=== PATIENT | male | born 1995 | race Caucasian/White ===

== ENCOUNTER 2018-02-12 18:59 | Emergency (ER) | payer BC ==
[2018-02-12] MEDS ORDERED: DEXAMETHASONE SOD PHOS INJ 10 MG/1 ML VIAL IV ONE (19:57)
[2018-02-12] MEDS ORDERED: ONDANSETRON 4 MG TAB.RAPDIS PO ONE (19:57)
[2018-02-12] MEDS ORDERED: NORMAL SALINE 1000 ML 1,000 ML IV ONE (19:57)
--- NOTE | 2018-02-12 19:59 | ER Document Report ---
ED Medical Screen (RME) - General Chief Complaint: Nausea/Vomiting/Diarrhea Stated Complaint: VOMITING Time Seen by Provider: 02/12/18 19:56 TRAVEL OUTSIDE OF THE [place] IN LAST 30 DAYS: No - HPI Notes: 02/12/18 19:57 Patient states nausea vomiting for approximately 1 week along with diarrhea also has a history of hypertension since he was acute however the only medication. Patient states no fevers no chills states multiple sick contacts however no one with his symptoms. Patient states feels like his throat is closing in. Patient otherwise resting comfortably talking complete sentences. - Related Data Allergies/Adverse Reactions: No Known Allergies Allergy (Verified 02/12/18 19:01) Review of Systems - Review of Systems Constitutional: Other - Nausea vomiting diarrhea Physical Exam - Vital signs Vitals: Temp Pulse Resp BP Pulse Ox 98.3 F 113 H 20 203/75 H 95 02/12/18 19:31 02/12/18 19:31 02/12/18 19:31 02/12/18 19:31 02/12/18 19:31 Interpretation: Normal - General General appearance: Appears well, Alert - HEENT Head: Normocephalic, Atraumatic Eyes: Normal Pupils: PERRL Notes: Bilateral tonsillar hypertrophy left greater than right with a possible tonsillolith in the right no uvula edema - Respiratory Respiratory status: No respiratory distress Chest status: Nontender Breath sounds: Normal Chest palpation: Normal - Cardiovascular Rhythm: Regular Heart sounds: Normal auscultation Murmur: No - Abdominal Inspection: Normal, Morbidly Obese Bowel sounds: Normal Tenderness: Nontender Organomegaly: No organomegaly - Back Back: Normal, Nontender - Extremities General upper extremity: Normal inspection, Nontender, Normal color, Normal ROM , Normal temperature General lower extremity: Normal inspection, Nontender, Normal color, Normal ROM , Normal temperature, Normal weight bearing. No: Isai's sign - Neurological Neuro grossly intact: Yes Cognition: Normal Orientation: AAOx4 [place] Coma Scale Eye Opening: Spontaneous [place] Coma Scale Verbal: Oriented Giorgio Coma Scale Motor: Obeys Commands [place] Coma Scale Total: 15 Speech: Normal Motor strength normal: LUE, RUE, LLE, RLE Sensory: Normal - Psychological Associated symptoms: Normal affect, Normal mood - Skin Skin Temperature: Warm Skin Moisture: Dry Skin Color: Normal Course - Vital Signs Vital signs: Temp Pulse Resp BP Pulse Ox 98.3 F 113 H 20 203/75 H 95 02/12/18 19:31 02/12/18 19:31 02/12/18 19:31 02/12/18 19:31 02/12/18 19:31
[2018-02-12] MEDS ORDERED: KETOROLAC TROMETHAMINE INJ/PF 30 MG/1 ML SDV IV ONE (20:16)
[2018-02-12] MEDS ORDERED: DEXAMETHASONE SOD PHOS INJ 10 MG/1 ML VIAL ONE (20:18)
[2018-02-12] MEDS ORDERED: ONDANSETRON 4 MG TAB.RAPDIS ONE (20:18)
--- NOTE | 2018-02-12 20:18 | ER Document Report ---
ED General - General Chief Complaint: Nausea/Vomiting/Diarrhea Stated Complaint: VOMITING Time Seen by Provider: 02/12/18 19:56 Notes: Patient is a 23-year-old male comes emergency department for chief complaint of 5 days of sick symptoms that started with throat pain, he states this is worsened, he vomited twice today, he also complains of loose stools and feeling feverish at home. States he feels like his throat is closing, he has had frequent strep throat infections in the past, he states this is worse than usual. Has known tonsillar hypertrophy. Denies any daily medications or medical problems otherwise. TRAVEL OUTSIDE OF THE [place] IN LAST 30 DAYS: No - Related Data Allergies/Adverse Reactions: No Known Allergies Allergy (Verified 02/12/18 19:01) Past Medical History - General Information source: Patient - Social History Smoking Status: Never Smoker Frequency of alcohol use: None Drug Abuse: None Lives with: Family Family History: Reviewed & Not Pertinent - Medical History Medical History: Negative Surgical Hx: Negative - Immunizations Immunizations up to date: Yes Review of Systems - Review of Systems Constitutional: See HPI EENT: See HPI Cardiovascular: No symptoms reported Respiratory: No symptoms reported Gastrointestinal: See HPI Genitourinary: No symptoms reported Male Genitourinary: No symptoms reported Musculoskeletal: No symptoms reported Skin: No symptoms reported Hematologic/Lymphatic: No symptoms reported Neurological/Psychological: No symptoms reported Physical Exam - Vital signs Vitals: Temp Pulse Resp BP Pulse Ox 98.3 F 113 H 20 203/75 H 95 02/12/18 19:31 02/12/18 19:31 02/12/18 19:31 02/12/18 19:31 02/12/18 19:31 - Notes Notes: GENERAL: Alert, interacts well. No acute distress. HEAD: Normocephalic, atraumatic. EYES: Pupils equal, round, and reactive to light. Extraocular movements intact. ENT: Oral mucosa moist, tongue midline. Very large tonsils with possible tonsillitis on the right, questionable peritonsillar abscess on the left, no uvular edema, clear airway. Anterior cervical adenopathy noted, no evidence of Tarun's angina. NECK: Full range of motion. Supple. Trachea midline. LUNGS: Clear to auscultation bilaterally, no wheezes, rales, or rhonchi. No respiratory distress. HEART: Regular rate and rhythm. No murmur ABDOMEN: Soft, non-tender. Non-distended. Bowel sounds present in all 4 quadrants. EXTREMITIES: Moves all 4 extremities spontaneously. No edema, normal radial and dorsalis pedis pulses bilaterally. No cyanosis. BACK: no cervical, thoracic, lumbar midline tenderness. No saddle anesthesia, normal distal neurovascular exam. NEUROLOGICAL: Alert and oriented x3. Normal speech. [cranial nerves II through XII grossly intact]. PSYCH: Normal affect, normal mood. SKIN: Warm, dry, normal turgor. No rashes or lesions noted. Course - Re-evaluation Re-evalutation: Positive strep, patient is very enlarged tonsils on examination with lymphadenopathy, questionable for peritonsillar abscess. Soft tissue of the neck was performed, shows no abscess, shows very large tonsils, adenopathy. Also shows questionable pneumonia. Patient is very well-appearing on reevaluation, he states he feels much better, no concern of airway compromise, no drooling, swallows easily, takes oral medications without any difficulty. Placing on amoxicillin and azithromycin. Discussed ENT follow-up, expectations , return precautions in detail. Patient states understanding and agreement with plan. - Vital Signs Vital signs: Temp Pulse Resp BP Pulse Ox 98.4 F 98 17 151/87 H 94 02/12/18 23:01 02/12/18 23:01 02/12/18 23:01 02/12/18 23:01 02/12/18 23:01 - Laboratory Result Diagrams: 02/12/18 20:11 02/12/18 20:11 Laboratory results interpreted by me: 02/12/18 02/12/18 02/12/18 20:11 20:11 20:11 WBC 14.8 H Seg Neutrophils % 81.3 H Lymphocytes % 9.2 L Absolute Neutrophils 12.1 H APTT 36.3 H Chloride 97 L Carbon Dioxide 31 H Glucose 127 H Discharge - Discharge Clinical Impression: Strep pharyngitis, Lymphadenopathy Pneumonia Qualifiers: Pneumonia type: due to unspecified organism Laterality: unspecified laterality Lung location: upper lobe of lung Qualified Code(s): J18.1 - Lobar pneumonia, unspecified organism Condition: Stable Disposition: HOME, SELF-CARE Additional Instructions: Your evaluation shows strep throat, pneumonia, and swollen lymph nodes. He also have occlusion of the nasopharyngeal passage as discussed. Take both antibiotics as prescribed to completion. You are contagious until you stop running fevers. Take Tylenol or ibuprofen for fevers. I recommend ear nose and throat follow-up because of very large tonsils and frequent infections. See referral, call referral for follow-up. Return if you worsen including swelling under the chin, swelling of the neck, increased swelling of the throat with difficulty swallowing, spiking fevers, difficulty breathing, or any other concerning symptoms. [facility] Address: [address] [place] [address] , [place] [address] Prescriptions: Amoxicillin Trihydrate [Amoxil 875 mg Tablet] 1 tab PO BID #20 tablet Azithromycin [Zithromax 250 mg Tablet] 250 mg PO ASDIR PRN #4 tablet PRN Reason: Forms: Return to Work Referrals: BRENDEN DINH, [ASSOCIATE] - Follow up as needed
[2018-02-12 20:27] LABS: ABSOLUTE BASOPHILS # (AUTO) 0.1 10^3/uL (0.0-0.2); ABSOLUTE EOSINOPHILS # (AUTO) 0.3 10^3/uL (0.0-0.6); ABSOLUTE LYMPHOCYTES (AUTO) 1.4 10^3/uL (0.5-4.7); ABSOLUTE NEUT (AUTO) 12.1 10^3/uL (1.7-8.2); BASOPHILS % (AUTO) 0.4 % (0-2); EOSINOPHILS % (AUTO) 2.1 % (0-6); HEMATOCRIT 44.8 % (37.9-51.0); HEMOGLOBIN 15.1 g/dL (13.5-17.0); LYMPHOCYTES % (AUTO) 9.2 % (13-45); MEAN CORPUSCULAR HEMOGLOBIN 28.1 pg (27.0-33.4); MEAN CORPUSCULAR HGB CONC 33.6 g/dL (32.0-36.0); MEAN CORPUSCULAR VOLUME 84 fl (80-97); PLATELET COUNT 277 10^3/uL (150-450); RED BLOOD COUNT 5.35 10^6/uL (4.35-5.55); RED CELL DISTRIBUTION WIDTH 13.9 % (11.5-14.0); SEGMENTED NEUTROPHILS % (AUTO) 81.3 % (42-78); TOTAL CELLS COUNTED % (AUTO) 100 %; WHITE BLOOD COUNT 14.8 10^3/uL (4.0-10.5)
[2018-02-12 20:36] LABS: INTERNATIONAL RATION (INR) 1.03
[2018-02-12 20:37] LABS: PARTIAL THROMBOPLASTIN TIME 36.3 SEC (23.5-35.8)
[2018-02-12 20:54] LABS: ALANINE AMINOTRANSFERASE 30 U/L (21-72); ALBUMIN 4.1 g/dL (3.5-5.0); ALKALINE PHOSPHATASE 50 U/L (38-126); ANION GAP 14 (5-19); ASPARTATE AMINO TRANSFERASE 35 U/L (17-59); BILIRUBIN,DIRECT 0.4 mg/dL (0.0-0.4); BILIRUBIN,TOTAL 0.5 mg/dL (0.2-1.3); BLOOD UREA NITROGEN 8 mg/dL (7-20); CARBON DIOXIDE 31 mmol/L (22-30); CHLORIDE 97 mmol/L (98-107); GLUCOSE 127 mg/dL (75-110); SODIUM 141.7 mmol/L (137-145); TOTAL PROTEIN 7.7 g/dL (6.3-8.2)
--- NOTE | 2018-02-12 21:56 | RADIOLOGY REPORT (SQ) ---
EXAM DESCRIPTION: CT SOFT TISSUE NECK WITH COMPLETED DATE/TIME: 02/12/2018 9:11 pm REASON FOR STUDY: throat pain/swelling, ? abscess COMPARISON: None. TECHNIQUE: Post IV contrasted scanning from skull base through lung apices with review of bone, soft tissue and lung windows. Reconstructed coronal and sagittal MPR images reviewed. All images stored on PACS. All CT scanners at this facility use dose modulation, iterative reconstruction, and/or weight based d osing when appropriate to reduce radiation dose to as low as reasonably achievable (ALARA). [facility]: Dose Right [facility]: CareDose [facility]: Dose Right [facility]: Teradose 4D [facility]: Fiz CONTRAST TYPE AND DOSE: contrast/concentration: Isovue 370.00 mg/ml; Total Contrast Delivered: 75.0 ml; Total Saline Delivered: 55.0 ml RENAL FUNCTION: None required. The patient is less than 50 years old. RADIATION DOSE: CT Rad equipment meets quality standard of care and radiation dose reduction techniq ues were employed. CTDIvol: 19.8 mGy. DLP: 711 mGy-cm. . LIMITATIONS: None. FINDINGS: SKULL BASE: Intact. MAJOR SALIVARY GLANDS: No inflammatory changes. LYMPHADENOPATHY: There is bilateral cervical adenopathy. Right-sided internal jugular chain lymph no de measuring 1.8 x 2.5 cm. Left-sided internal jugular lymph chain lymph node measuring 1.7 x 2.8 cm . MUCOSAL MASSES OR ASYMMETRY: There is enlargement of the adenoids and of the palatine tonsils with oc clusion of the nasopharynx. No fluid collection to suggest abscess formation. LARYNX/CORDS: No abnormal findings. VASCULAR STRUCTURES: The major vessels are patent. LUNG APICES: Airspace opacity at the visualized superior segment of the left lower lobe. BONES: Intact. THYROID: Homogeneous enhancement. PARANASAL SINUSES: Clear. IMPRESSION: 1. Enlarged bilateral adenoids and palatine tonsils with occlusion of the nasopharynx. No CT evidence for abscess formation. 2. Bilateral cervical adenopathy. 3. Airspace opacity at the visualized superior segment of the left lower lobe, may represent pneumoni a. TECHNICAL DOCUMENTATION: JOB ID: [id number] [id number] Quality ID # [id number]: Final reports with documentation of one or more dose reduction techniques (e.g., Au tomated exposure control, adjustment of the mA and/or kV according to patient size, use of iterative reconstruction technique) 2010 [employer]- All Rights Reserved Reading location - IP/workstation name: [email or web address]
[2018-02-12] MEDS ORDERED: AMPICILLIN SOD/SULBACTAM 3 GM VIAL IV ONE (22:34)
[2018-02-12] MEDS ORDERED: AMOXICILLIN TRIHYDRATE 500 MG CAPSULE PO ONE (22:36)
[2018-02-12] MEDS ORDERED: AZITHROMYCIN 250 MG TABLET PO ONE (22:39)
[2018-02-12 23:02] VITALS: BP 151/87
== END 2018-02-12 23:02 | disposition home or self-care (01) ==
LOC: ER 18:59
DX: J02.0 Streptococcal pharyngitis (principal); R59.0 Localized enlarged lymph nodes; J18.1 Lobar pneumonia, unspecified organism; R19.7 Diarrhea, unspecified; R11.2 Nausea with vomiting, unspecified
CPT/HCPCS: 99284; 96361; 96374; 96375; 36415; 87040; 87880; 85025; 85610; 85730; 86308; 80053; 70491; S0119; J1885; J7030; J1100